=== PATIENT | female | born 1955 | race African-American/Black ===

== ENCOUNTER 2018-10-05 06:57 | Day surgery (SDC) | payer MEDICAID ==
[~2018-10-05] VITALS: Ht 165.1 cm; Wt 100.1 kg
[~2018-10-05 06:57] MED LIST: ATEN25TA PO; CINA60TA PO; OXYC1TAB7 PO; SEVE800T7 PO
[2018-10-05 07:43] VITALS: BP 135/92
[2018-10-05] MEDS ORDERED: D5%-0.45% NACL 1,000 ML IV SCH (07:45)
[2018-10-05] MEDS ORDERED: PRED20TA PO (07:49)
[2018-10-05] MEDS ORDERED: CINA90TA PO (07:49)
[2018-10-05] MEDS ORDERED: HYDR-3245 PO (07:49)
[2018-10-05] MEDS ORDERED: TETR15DR16 EACHEYE (07:49)
[2018-10-05] MEDS ORDERED: ASPI-496 PO (07:49)
[2018-10-05] MEDS ORDERED: LIDOCAINE-MPF 1%, 5ML ONE ×2 (08:26→08:27)
[2018-10-05] MEDS ORDERED: FENTANYL PF 100 MCG/2ML ONE (08:31)
[2018-10-05] MEDS ORDERED: NALOXONE 1 MG/ML, 2ML ONE (08:32)
[2018-10-05] MEDS ORDERED: NITROGLYCERIN 5 MG/ML, 10ML ONE (08:32)
[2018-10-05] MEDS ORDERED: FLUMAZENIL 0.1 MG/1 ML, 5ML ONE (08:32)
[2018-10-05] MEDS ORDERED: PROTAMINE SULFATE 10 MG/ML, 25ML ONE (08:32)
[2018-10-05] MEDS ORDERED: HEPARIN 1,000 UNITS/ML, 10ML ONE (08:32)
[2018-10-05] MEDS ORDERED: MIDAZOLAM 1 MG/ML, 5ML ONE (08:32)
[2018-10-05 08:51] LABS: ALANINE AMINOTRANSFERASE 15 U/L (12-78); ALBUMIN 3.4 g/dL (3.4-5.0); ANION GAP 9 mmol/L (5-15); CALCIUM 8.6 mg/dL (8.5-10.1); CHLORIDE 91 mmol/L (98-107)
[2018-10-05 08:53] LABS: ALKALINE PHOSPHATASE 135 U/L (45-117); BILIRUBIN,TOTAL 0.7 mg/dL (0.2-1.0); TOTAL PROTEIN 8.3 g/dL (6.4-8.2)
[2018-10-05 08:58] LABS: BASOPHILS # (AUTO) 0.07 x10^3/uL (0-0.1); BASOPHILS % (AUTO) 1 % (0-1); EOSINOPHILS # (AUTO) 0.14 x10^3/uL (0-0.4); EOSINOPHILS % (AUTO) 3 % (1-7); LYMPHOCYTES # (AUTO) 1.56 x10^3/uL (1-3.4); LYMPHOCYTES % (AUTO) 28 % (22-44); MD SCAN; MEAN CORPUSCULAR HEMOGLOBIN 27.2 pg (27.0-34.8); MEAN CORPUSCULAR HGB CONC 31.1 g/dL (32.4-35.8); MEAN CORPUSCULAR VOLUME 87.5 fL (80-100); MEAN PLATELET VOLUME 7.2 fL (7.4-10.4); MONOCYTES # (AUTO) 0.44 x10^3/uL (0.2-0.8); MONOCYTES % (AUTO) 8 % (2-9); NEUTROPHILS # (AUTO) 3.36 x10^3/uL (1.8-6.8); NEUTROPHILS % (AUTO) 60 % (42-75); PLATELET COUNT 209 x10^3/uL (130-400); RED BLOOD COUNT 6.26 x10^6/uL (3.82-5.3)
[2018-10-05] MEDS ORDERED: VISIPAQUE 270 MG/ML, 150ML BOTTLE ONE (09:00)
[2018-10-05] MEDS ORDERED: HYDROcodone/APAP 5/325 TABLET PO PRN (10:00)
[2018-10-05] MEDS ORDERED: ONDANSETRON 2MG/ML, 2ML IVPush PRN (10:00)
== END 2018-10-05 13:05 | disposition home or self-care (01) ==
LOC: RAD 06:57
PROVIDERS: ATTEND Surgery
DX: I70.234 Atherosclerosis of native arteries of right leg with ulceration of heel and midfoot (principal); I12.0 Hypertensive chronic kidney disease with stage 5 chronic kidney disease or end stage renal disease; N18.6 End stage renal disease; Z90.49 Acquired absence of other specified parts of digestive tract; Z98.890 Other specified postprocedural states; Z88.6 Allergy status to analgesic agent; Z88.5 Allergy status to narcotic agent; Z88.8 Allergy status to other drugs, medicaments and biological substances; Z99.2 Dependence on renal dialysis
CPT/HCPCS: 36200; 36415; 75625; 75716; 80053; 85025; 99156; 99157; C1751; C1769; C1894; J1644; J2250; J3010; Q9966; 75710; J2720; J2310

== ENCOUNTER 2018-10-19 06:52 | Observation (INO) | payer MEDICAID ==
[~2018-10-19] VITALS: Ht 167.6 cm; Wt 101.0 kg
[~2018-10-19 06:52] MED LIST changes: +ASPI-496 PO; +CINA90TA PO; +HYDR-3245 PO; +PRED20TA PO; +TETR15DR16 EACHEYE
[2018-10-19] MEDS ORDERED: LIDOCAINE-MPF 1%, 5ML ONE (07:22)
[2018-10-19 07:33] VITALS: BP 109/78
[2018-10-19] MEDS ORDERED: D5%-0.45% NACL 1,000 ML IV SCH (07:37)
[2018-10-19] MEDS ORDERED: LIDOCAINE-MPF 1%, 2ML ONE (07:39)
[2018-10-19] MEDS ORDERED: TRAM50TA2 PO (07:41)
[2018-10-19] MEDS ORDERED: AMLO10TA4 PO (08:00)
[2018-10-19] MEDS ORDERED: ATEN25TA PO (08:00)
[2018-10-19 08:11] LABS: ANION GAP 11 mmol/L (5-15); CALCIUM 7.9 mg/dL (8.5-10.1); CHLORIDE 96 mmol/L (98-107)
[2018-10-19 08:12] LABS: ALANINE AMINOTRANSFERASE 15 U/L (12-78); ALBUMIN 3.3 g/dL (3.4-5.0)
[2018-10-19 08:14] LABS: ALKALINE PHOSPHATASE 131 U/L (45-117); BILIRUBIN,TOTAL 0.4 mg/dL (0.2-1.0); TOTAL PROTEIN 8.7 g/dL (6.4-8.2)
[2018-10-19 08:37] LABS: MEAN CORPUSCULAR HEMOGLOBIN 27.6 pg (27.0-34.8); MEAN CORPUSCULAR HGB CONC 31.3 g/dL (32.4-35.8); PLATELET COUNT 215 x10^3/uL (130-400); RED BLOOD COUNT 6.05 x10^6/uL (3.82-5.3); RED CELL DISTRIBUTION WIDTH 18.8 % (9.6-15.2)
[2018-10-19] MEDS ORDERED: MIDAZOLAM 1 MG/ML, 5ML ONE ×2 (08:46→10:09)
[2018-10-19] MEDS ORDERED: FENTANYL PF 100 MCG/2ML ONE ×2 (08:46→10:10)
[2018-10-19] MEDS ORDERED: NITROGLYCERIN 5 MG/ML, 10ML ONE (08:47)
[2018-10-19] MEDS ORDERED: NALOXONE 1 MG/ML, 2ML ONE (08:47)
[2018-10-19] MEDS ORDERED: FLUMAZENIL 0.1 MG/1 ML, 5ML ONE (08:47)
[2018-10-19] MEDS ORDERED: HEPARIN 1,000 UNITS/ML, 10ML ONE ×2 (08:47→10:09)
[2018-10-19] MEDS ORDERED: PROTAMINE SULFATE 10 MG/ML, 25ML ONE (08:47)
[2018-10-19 08:59] LABS: BASOPHILS # (AUTO) 0.09 x10^3/uL (0-0.1); BASOPHILS % (AUTO) 1 % (0-1); EOSINOPHILS # (AUTO) 0.16 x10^3/uL (0-0.4); EOSINOPHILS % (AUTO) 2 % (1-7); LYMPHOCYTES # (AUTO) 1.58 x10^3/uL (1-3.4); LYMPHOCYTES % (AUTO) 23 % (22-44); MD SCAN; MONOCYTES # (AUTO) 0.61 x10^3/uL (0.2-0.8); MONOCYTES % (AUTO) 9 % (2-9); NEUTROPHILS # (AUTO) 4.37 x10^3/uL (1.8-6.8); NEUTROPHILS % (AUTO) 64 % (42-75)
[2018-10-19] MEDS ORDERED: HYDROmorphone 2 MG/ML, 1ML ONE (11:27)
[2018-10-19] MEDS ORDERED: OXYcodone IR 5MG TABLET PO PRN (12:00)
[2018-10-19] MEDS ORDERED: ACETAMINOPHEN 650 MG/20.3 ML UDC PO PRN (12:00)
[2018-10-19] MEDS ORDERED: ONDANSETRON 2MG/ML, 2ML IVPush PRN (12:00)
[2018-10-19] MEDS ORDERED: SODIUM CHLORIDE FLUSH 10ML SYR IVF SCH (21:00)
== END 2018-10-19 14:00 | disposition home or self-care (01) ==
LOC: OUT 06:52 → ORIP 11:49
PROVIDERS: ADMIT Surgery; ATTEND Surgery
DX: I70.201 Unspecified atherosclerosis of native arteries of extremities, right leg (principal); N18.6 End stage renal disease; I12.9 Hypertensive chronic kidney disease with stage 1 through stage 4 chronic kidney disease, or unspecified chronic kidney disease; Z99.2 Dependence on renal dialysis; Z51.5 Encounter for palliative care
CPT/HCPCS: 36415; 37228; 37229; 75710; 80053; 85025; 99156; 99157; C1725; C1751; C1769; C1894; G0378; J1170; J1644; J2250; J3010; J2720; J2310

== ENCOUNTER 2020-05-18 07:05 | Inpatient (IN) | payer MEDICAID ==
[~2020-05-18] VITALS: Ht 165.1 cm; Wt 105.2 kg
[~2020-05-18 07:05] MED LIST changes: +AMLO10TA4 PO; +TRAM50TA2 PO
--- NOTE | 2020-05-18 07:20 | NUR ---
[facility]: PT TO ROOM VIA [facility]
--- NOTE | 2020-05-18 07:38 | NUR ---
PT BIB EMS FOR R ARM FISTULA COMPLICATIONS. PAIN AND SWELLING ON FRIDAY AFTER ACCESS. WENT TO DIALYSIS TODAY AND WAS UNABLE TO ACCESS. NO BRUIT OR THRILL PRESENT. RADIAL PULSE NORMAL. CMS INTACT. ZENAIDA N/T. MD BAGLEY AT BEDSIDE.
[2020-05-18] MEDS ORDERED: ATENOLOL 25 MG TABLET PO PRN (09:00)
[2020-05-18] MEDS ORDERED: ACETAMINOPHEN 325 MG TABLET PO PRN (09:00)
[2020-05-18] MEDS ORDERED: ONDANSETRON 2MG/ML, 2ML IVPush PRN (09:00)
[2020-05-18] MEDS ORDERED: HEPARIN 5,000 UNITS/ML, 1ML SQ SCH (09:00)
[2020-05-18] MEDS ORDERED: ONDANSETRON ODT 4 MG PO PRN (09:00)
[2020-05-18] MEDS: CINACALCET HCL 90 MG PO SCH (09:00)
[2020-05-18] MEDS ORDERED: SENNA/DOCUSATE TABLET PO PRN (09:00)
--- NOTE | 2020-05-18 09:26 | NUR ---
PT RESTING, GIVEN WATER. ADMIT HOLD
--- NOTE | 2020-05-18 09:56 | NUR ---
Task rn: piv placed from which labs were drawn Inpatient provider to bedside: reports patient to be allowed to eat with fluid restiction in preparation for de-clotting of HD access tomorrow (05/19/20) Diet tray ordered
[2020-05-18 10:09] LABS: INTERNATIONAL NORMALIZED RATIO 1.04 (0.93-1.1); PROTHROMBIN TIME 10.7 Seconds (9.6-11.5)
[2020-05-18 10:10] LABS: BASOPHILS # (AUTO) 0.05 x10^3/uL (0-0.1); BASOPHILS % (AUTO) 1 % (0-1); EOSINOPHILS % (AUTO) 4 % (1-7); LYMPHOCYTES % (AUTO) 33 % (22-44); MD NO; MEAN CORPUSCULAR HGB CONC 30.6 g/dL (32.4-35.8); MEAN CORPUSCULAR VOLUME 91.3 fL (80-100); MEAN PLATELET VOLUME 7.2 fL (7.4-10.4); MONOCYTES # (AUTO) 0.52 x10^3/uL (0.2-0.8); MONOCYTES % (AUTO) 11 % (2-9); NEUTROPHILS # (AUTO) 2.35 x10^3/uL (1.8-6.8); NEUTROPHILS % (AUTO) 51 % (42-75); PLATELET COUNT 206 x10^3/uL (130-400); RED BLOOD COUNT 5.66 x10^6/uL (3.82-5.3); RED CELL DISTRIBUTION WIDTH 19.5 % (9.6-15.2)
[2020-05-18 10:11] LABS: ANION GAP 10 mmol/L (5-15); CALCIUM 9.5 mg/dL (8.5-10.1); CHLORIDE 95 mmol/L (98-107); CREATININE 9.54 mg/dL (0.55-1.02)
--- NOTE | 2020-05-18 10:20 | NUR ---
GIVEN MEAL TRAY.
[2020-05-18] MEDS ORDERED: HEPARIN 5,000 UNITS/ML, 1ML ONE ×2 (10:46→18:31)
[2020-05-18] MEDS ORDERED: HYDROcodone/APAP 10/325 MG TABLET ONE (10:46)
[2020-05-18] MEDS: HYDROcodone/APAP 10/325 MG TABLET PO SCH ×2 (10:54→20:33)
[2020-05-18] MEDS: AMLODIPINE 10 MG TAB PO SCH (10:55)
[2020-05-18] MEDS: TETRAHYDROZOLINE OPHTH 0.05% 15ML EACHEYE SCH (11:00)
[2020-05-18] MEDS ORDERED: SODIUM ZIRCONIUM CYCLOSILICATE 10 GM PO ONE (11:00)
--- NOTE | 2020-05-18 11:04 | NUR ---
REPORT TO CULLEN
--- NOTE | 2020-05-18 11:04 | NUR ---
MEDICATED PER ORDERS.
[2020-05-18] MEDS ORDERED: HEPARIN 5,000 UNITS/ML, 1ML IV PRN (12:30)
[2020-05-18] MEDS ORDERED: HEPARIN 5,000 UNITS/ML, 1ML IV ONE (12:30)
[2020-05-18] MEDS ORDERED: HEPARIN 25,000 UNITS/250ML PMX 250 ML IV PRN (12:30)
[2020-05-18] MEDS: SEVELAMER CARBONATE 800MG TAB PO SCH ×3 (12:53→20:45)
[2020-05-18 14:24] VITALS: BP 152/93
[2020-05-18] MEDS: HEPARIN 5,000 UNITS/ML, 1ML SQ SCH (18:35)
[2020-05-18 19:12] VITALS: BP 153/92
[2020-05-18] MEDS ORDERED: SEVELAMER CARBONATE 800MG TAB ONE (20:43)
[2020-05-19 00:52] VITALS: BP 147/86
[2020-05-19] MEDS: HEPARIN 5,000 UNITS/ML, 1ML SQ SCH ×3 (02:16→23:46)
[2020-05-19] MEDS ORDERED: LORazepam 0.5MG TABLET PO ONE (02:30)
[2020-05-19 05:14] LABS: BASOPHILS # (AUTO) 0.02 x10^3/uL (0-0.1); BASOPHILS % (AUTO) 0 % (0-1); EOSINOPHILS # (AUTO) 0.03 x10^3/uL (0-0.4); EOSINOPHILS % (AUTO) 1 % (1-7); LYMPHOCYTES % (AUTO) 25 % (22-44); MD NO; MEAN CORPUSCULAR HEMOGLOBIN 28.3 pg (27.0-34.8); MEAN CORPUSCULAR HGB CONC 31.4 g/dL (32.4-35.8); MEAN CORPUSCULAR VOLUME 90.2 fL (80-100); MEAN PLATELET VOLUME 7.4 fL (7.4-10.4); MONOCYTES # (AUTO) 0.54 x10^3/uL (0.2-0.8); MONOCYTES % (AUTO) 10 % (2-9); NEUTROPHILS # (AUTO) 3.27 x10^3/uL (1.8-6.8); NEUTROPHILS % (AUTO) 63 % (42-75); PLATELET COUNT 202 x10^3/uL (130-400); RED BLOOD COUNT 4.95 x10^6/uL (3.82-5.3); RED CELL DISTRIBUTION WIDTH 18.8 % (9.6-15.2)
[2020-05-19 05:15] LABS: CALCIUM 8.8 mg/dL (8.5-10.1); CHLORIDE 96 mmol/L (98-107)
[2020-05-19 05:19] LABS: ALBUMIN 2.7 g/dL (3.4-5.0); ANION GAP 12 mmol/L (5-15)
[2020-05-19 06:57] VITALS: BP 123/76
[2020-05-19] MEDS: SEVELAMER CARBONATE 800MG TAB PO SCH ×3 (08:00→23:45)
[2020-05-19] MEDS: HYDROcodone/APAP 10/325 MG TABLET PO SCH ×2 (08:26→23:45)
[2020-05-19] MEDS: AMLODIPINE 10 MG TAB PO SCH (08:27)
[2020-05-19] MEDS: TETRAHYDROZOLINE OPHTH 0.05% 15ML EACHEYE SCH (08:33)
[2020-05-19] MEDS: CINACALCET HCL 90 MG PO SCH (09:00)
[2020-05-19] MEDS ORDERED: SODIUM ZIRCONIUM CYCLOSILICATE 10 GM PO SCH (09:00)
[2020-05-19] MEDS: SODIUM ZIRCONIUM CYCLOSILICATE 10 GM PO SCH ×2 (09:53→16:00)
[2020-05-19 12:38] VITALS: BP 152/95
[2020-05-19] MEDS ORDERED: CHLORHEXIDINE 15 ML UDC ONE (13:14)
[2020-05-19] MEDS ORDERED: CHLORHEXIDINE 15 ML UDC MM ONE (14:00)
[2020-05-19] MEDS ORDERED: FENTANYL PF 250 MCG/5ML ONE (14:28)
[2020-05-19] MEDS ORDERED: HEPARIN 1,000 UNITS/ML, 30ML ONE (14:39)
[2020-05-19] MEDS ORDERED: PROTAMINE SULFATE 10 MG/ML, 5ML ONE (14:39)
[2020-05-19] MEDS ORDERED: BUPIVACAINE/PF 0.5% ONE (14:39)
[2020-05-19] MEDS ORDERED: EPINEPHRINE 1 MG/ML, 1ML ONE (14:39)
[2020-05-19] MEDS ORDERED: PROPOFOL 10 MG/ML, 20ML ONE (14:59)
[2020-05-19] MEDS ORDERED: EPHEDRINE 50 MG/ML, 1ML ONE (14:59)
[2020-05-19] MEDS ORDERED: ROCURONIUM 10MG/ML,5ML ONE (14:59)
[2020-05-19] MEDS ORDERED: CEFAZOLIN 1,000 MG ONE (14:59)
[2020-05-19] MEDS ORDERED: LABETALOL 5MG/ML, 20ML IV PRN (16:00)
[2020-05-19] MEDS ORDERED: hydrALAzine 20 MG/ML, 1ML IV PRN (16:00)
[2020-05-19] MEDS ORDERED: PROMETHAZINE 25 MG/ML, 1ML IVPush PRN (16:00)
[2020-05-19] MEDS ORDERED: ACETAMINOPHEN 325 MG TABLET PO PRN (16:00)
[2020-05-19] MEDS ORDERED: OXYcodone 5 MG/5 ML ORAL.SOL UDC PO PRN (16:00)
[2020-05-19] MEDS ORDERED: EPHEDRINE 50 MG/ML, 1ML IVPush PRN (16:00)
[2020-05-19] MEDS ORDERED: ONDANSETRON 2MG/ML, 2ML IVPush PRN (16:00)
[2020-05-19] MEDS ORDERED: FENTANYL PF 100 MCG/2ML ONE (18:19)
[2020-05-19] MEDS ORDERED: OXYcodone 5 MG/5 ML ORAL.SOL UDC ONE ×2 (18:19→18:26)
[2020-05-19 18:22] LABS: ANION GAP 11 mmol/L (5-15); CALCIUM 8.5 mg/dL (8.5-10.1); CHLORIDE 98 mmol/L (98-107)
[2020-05-19 18:23] LABS: BASOPHILS # (AUTO) 0.04 x10^3/uL (0-0.1); BASOPHILS % (AUTO) 1 % (0-1); EOSINOPHILS # (AUTO) 0.25 x10^3/uL (0-0.4); EOSINOPHILS % (AUTO) 4 % (1-7); LYMPHOCYTES # (AUTO) 2.23 x10^3/uL (1-3.4); LYMPHOCYTES % (AUTO) 37 % (22-44); MD NO; MEAN CORPUSCULAR VOLUME 90.3 fL (80-100); MEAN PLATELET VOLUME 7.6 fL (7.4-10.4); MONOCYTES # (AUTO) 0.51 x10^3/uL (0.2-0.8); MONOCYTES % (AUTO) 8 % (2-9); NEUTROPHILS # (AUTO) 3.05 x10^3/uL (1.8-6.8); NEUTROPHILS % (AUTO) 50 % (42-75); PLATELET COUNT 214 x10^3/uL (130-400); RED BLOOD COUNT 4.74 x10^6/uL (3.82-5.3); RED CELL DISTRIBUTION WIDTH 18.8 % (9.6-15.2)
[2020-05-19] MEDS: FENTANYL PF 100 MCG/2ML IV PRN ×2 (18:24→18:30)
[2020-05-19] MEDS ORDERED: HYDROmorphone 1 MG/ML, 1ML INJ ONE (18:25)
[2020-05-19] MEDS: HYDROmorphone 1 MG/ML, 1ML INJ IVPush PRN ×2 (18:45→18:55)
[2020-05-19] MEDS ORDERED: ALBUMIN HUMAN 25% 100 ML IV PRN (21:30)
[2020-05-19 23:42] VITALS: BP 133/70
[2020-05-20 01:26] VITALS: BP 123/79
[2020-05-20 07:14] VITALS: BP 133/70
[2020-05-20] MEDS: SEVELAMER CARBONATE 800MG TAB PO SCH ×2 (08:00→12:00)
[2020-05-20] MEDS: HEPARIN 5,000 UNITS/ML, 1ML SQ SCH (08:06)
[2020-05-20] MEDS: TETRAHYDROZOLINE OPHTH 0.05% 15ML EACHEYE SCH (08:17)
[2020-05-20] MEDS: CINACALCET HCL 90 MG PO SCH (08:17)
[2020-05-20] MEDS: HYDROcodone/APAP 10/325 MG TABLET PO SCH (08:21)
[2020-05-20] MEDS ORDERED: HYDR-3341 PO (12:00)
[2020-05-20 12:47] VITALS: BP 139/85
[2020-05-20] MEDS: AMLODIPINE 10 MG TAB PO SCH (13:33)
== END 2020-05-20 15:30 | disposition home or self-care (01) | DRG 182 ==
LOC: ED 08:06 → EDIP 09:14 → 4WST 12:15
PROVIDERS: ADMIT Hospitalist; ATTEND Internal Medicine
PROC: 03CY0ZZ Extirpation of Matter from Upper Artery, Open Approach (ICD-10-PCS; 2020-05-19)
PROC: 02HV33Z Insertion of Infusion Device into Superior Vena Cava, Percutaneous Approach (ICD-10-PCS; 2020-05-19)
PROC: 5A1D70Z Performance of Urinary Filtration, Intermittent, Less than 6 Hours Per Day (ICD-10-PCS; 2020-05-19)
PROC: 05753DZ Dilation of Right Subclavian Vein with Intraluminal Device, Percutaneous Approach (ICD-10-PCS; principal; 2020-05-19 14:00)
PROC: 5A1D70Z Performance of Urinary Filtration, Intermittent, Less than 6 Hours Per Day (ICD-10-PCS; 2020-05-20)
DX: T82.868A Thrombosis due to vascular prosthetic devices, implants and grafts, initial encounter (principal); Y83.2 Surgical operation with anastomosis, bypass or graft as the cause of abnormal reaction of the patient, or of later complication, without mention of misadventure at the time of the procedure; Z99.2 Dependence on renal dialysis; N18.6 End stage renal disease; I73.9 Peripheral vascular disease, unspecified; I12.0 Hypertensive chronic kidney disease with stage 5 chronic kidney disease or end stage renal disease; E66.9 Obesity, unspecified; Z20.828 Contact with and (suspected) exposure to other viral communicable diseases; Y92.89 Other specified places as the place of occurrence of the external cause; Z68.38 Body mass index [BMI] 38.0-38.9, adult; Z88.6 Allergy status to analgesic agent; Z88.5 Allergy status to narcotic agent
CPT/HCPCS: 36415; 75710; 77001; 80048; 80069; 85025; 85520; 85610; 86705; 86706; 87340; 87635; 90935; 93005; 96372; 99285; C1725; G0378; J0171; J0690; J1170; J1644; J2704; J2720; J3010; C1751; C1757; C1768; C1769; J7512